=== PATIENT | female | born 1935 | race Caucasian/White ===

== ENCOUNTER → 2016-10-02 | Outpatient (CLI) | payer OTHER, MEDICARE | LOC: NUC 10:32 | DX: N95.9 Unspecified menopausal and perimenopausal disorder (principal); M81.0 Age-related osteoporosis without current pathological fracture ==

== ENCOUNTER → 2018-05-16 | Outpatient (CLI) | payer OTHER, MEDICARE | LOC: MRI 16:17 | DX: S22.080A Wedge compression fracture of T11-T12 vertebra, initial encounter for closed fracture (principal); M47.27 Other spondylosis with radiculopathy, lumbosacral region; M51.17 Intervertebral disc disorders with radiculopathy, lumbosacral region; M43.17 Spondylolisthesis, lumbosacral region; M48.07 Spinal stenosis, lumbosacral region; M41.87 Other forms of scoliosis, lumbosacral region; X58.XXXA Exposure to other specified factors, initial encounter; Y93.89 Activity, other specified; Y92.89 Other specified places as the place of occurrence of the external cause; Y99.8 Other external cause status ==

== ENCOUNTER → 2018-06-26 | Outpatient (CLI) | payer OTHER, MEDICARE | LOC: NUC 10:39 | DX: M81.0 Age-related osteoporosis without current pathological fracture (principal); Z78.0 Asymptomatic menopausal state ==

== ENCOUNTER → 2020-06-01 | Outpatient (CLI) | payer OTHER, MEDICARE | LOC: MRI 15:07 | PROVIDERS: ATTEND Family Medicine | DX: I67.82 Cerebral ischemia (principal); R41.82 Altered mental status, unspecified; R27.0 Ataxia, unspecified; G93.89 Other specified disorders of brain ==

== ENCOUNTER → 2020-08-02 | Outpatient (CLI) | payer OTHER, MEDICARE ==
--- NOTE | 2020-08-02 14:07 | 2DMMODE ---
[facility] [place] [address] 2 D/M-MODE ECHOCARDIOGRAM Name: KIRILL ALTAMIRANO Room #: REG [facility]#: [id number] Admission: 08/02/20 Attend Phys: Stephani Jones MD Discharge: Date of : 33 Report #: [id number] THIS REPORT FOR: cc: Stephani Jones MD, Nora P. MD Santiago, Patrick MD [facility] ~ APPROVED REPORT Study performed: 08/02/2020 13:32:52 EXAM: Comprehensive 2D, Doppler, and color-flow Echocardiogram Patient Location: Out-Patient Status: routine BSA: 1.47 HR: 70 bpm BP: 110/70 mmHg Indications Dizziness. 2D Dimensions RVDd: 33.53 mm IVSd: 12.00 (7-11mm) LVOT Diam: 20.00 (18-24mm) LVDd: 38.00 mm PWd: 11.00 (7-11mm) LVDs: 18.00 (25-40mm) Aortic Root: 31.40 mm Volumes Left Atrial Volume (Systole) Single Plane 4CH: 41.85 mL Single Plane 2CH: 30.94 mL LA ESV Index: 26.00 mL/m2 Aortic Valve AoV Peak Melo.: 1.64 m/s AO Peak Gr.: 10.69 mmHg LVOT Max P.88 mmHg LVOT Max V: 0.98 m/s WHITNEY Vmax: 1.97 cm2 Mitral Valve E/A Ratio: 0.8 MV Decel. Time: 207.25 ms MV E Max Melo.: 0.69 m/s [facility] [address] [address] 2 D/M-MODE ECHOCARDIOGRAM Name: KIRILL ALTAMIRANO Room #: REG [facility]#: [id number] Admission: 08/02/20 Attend Phys: Stephani Jones MD Discharge: Date of : 33 Report #: [id number] MV A Melo.: 0.85 m/s MV PHT: 60.10 ms IVRT: 86.51 ms Pulmonary Valve PV Peak Melo.: 1.05 m/s PV Peak Gr.: 4.38 mmHg Pulmonary Vein P Vein S: 0.45 m/s P Vein A: 0.34 m/s P Vein D: 0.29 m/s P Vein A Dur.: 107.3 msec P Vein S/D Ratio: 1.55 Tricuspid Valve TR Peak Melo.: 2.57 m/s RAP Estimate: 5.00 mmHg TR Peak Gr.: 26.34 mmHg PA Pressure: 31.00 mmHg Left Ventricle The left ventricle is normal size. There is normal LV segmental wall motion. Mild basal septal hypertrophy is present. Left ventricular systolic function is normal. LVEF is 60-65%. Mild diastolic dysfunction is present (impaired relaxation pattern). Right Ventricle The right ventricle is normal size. The right ventricular systolic function is normal. Atria The left atrium size is normal. The right atrium size is normal. Aortic Valve The aortic valve is normal in structure. Mildly thickened leaflets. No aortic regurgitation is present. There is no aortic valvular stenosis. Mitral Valve The mitral valve is normal in structure. Mild mitral regurgitation. No evidence of mitral valve stenosis. Tricuspid Valve The tricuspid valve is normal in structure. Mild to moderate tricuspid regurgitation. Estimated PAP is 30-35mmHg. Pulmonic Valve Pulmonic valve is not well visualized. [facility] [address] [place] [address] 2 D/M-MODE ECHOCARDIOGRAM Name: KIRILL ALTAMIRANO Room #: REG [facility]#: [id number] Admission: 08/02/20 Attend Phys: Stephani Jones MD Discharge: Date of : 33 Report #: [id number] Great Vessels The aortic root is normal in size. Ascending aorta is not well visualized. IVC is normal in size and collapses >50% with inspiration. Pericardium There is no pericardial effusion. <Conclusion> Normal left ventricular size with mild basilar hypertrophy Ejection fraction 60% Grade 1 diastolic dysfunction Normal right ventricular size/function Normal atrial size Aortic valve mildly thickened, no stenosis Trace mitral valve insufficiency Mild tricuspid valve insufficiency, pulmonary systolic pressure estimated 35 mmHg No pericardial effusion <ELECTRONICALLY SIGNED> By: Steve Yousif MD, FACC 08/02/20 1407 06 06 Steve Yousif MD, [facility] /INF
== END ==
LOC: CV 13:03
PROVIDERS: ATTEND Family Medicine
DX: I65.23 Occlusion and stenosis of bilateral carotid arteries (principal)

== ENCOUNTER → 2020-08-09 | Outpatient (CLI) | payer OTHER, MEDICARE | LOC: SJCVC 13:51 | PROVIDERS: ATTEND Internal Medicine | DX: I45.10 Unspecified right bundle-branch block (principal); I10 Essential (primary) hypertension; R94.31 Abnormal electrocardiogram [ECG] [EKG]; I63.9 Cerebral infarction, unspecified; R42 Dizziness and giddiness; Z13.220 Encounter for screening for lipoid disorders; Z79.899 Other long term (current) drug therapy ==

== ENCOUNTER → 2020-10-27 | Outpatient (CLI) | payer OTHER, MEDICARE | LOC: SJCVC 13:32 | PROVIDERS: ATTEND Internal Medicine | DX: I48.0 Paroxysmal atrial fibrillation (principal); M81.0 Age-related osteoporosis without current pathological fracture; Z86.73 Personal history of transient ischemic attack (TIA), and cerebral infarction without residual deficits; Z79.899 Other long term (current) drug therapy ==